=== PATIENT | male | born 1985 | race Caucasian/White ===

== ENCOUNTER 2020-04-04 12:18 | Emergency (ER) | payer OTHER | END 2020-04-04 12:38 | disposition left against medical advice (07) | LOC: ER1 12:18 | DX: Z53.21 Procedure and treatment not carried out due to patient leaving prior to being seen by health care provider (principal) ==

== ENCOUNTER 2020-12-01 19:52 | Emergency (ER) | payer OTHER ==
[2020-12-01] MEDS ORDERED: AUGMENTIN 875-1 EACH PO (22:07)
== END 2020-12-01 22:40 ==
LOC: ER1 19:52
DX: S02.40FA Zygomatic fracture, left side, initial encounter for closed fracture (principal); S02.2XXA Fracture of nasal bones, initial encounter for closed fracture; S02.40DA Maxillary fracture, left side, initial encounter for closed fracture; S01.01XA Laceration without foreign body of scalp, initial encounter; Y04.0XXA Assault by unarmed brawl or fight, initial encounter; Y92.148 Other place in prison as the place of occurrence of the external cause
CPT/HCPCS: 12002; 70450; 70486; 73130; 99284